=== PATIENT | female | born 2005 | race Caucasian/White ===

== ENCOUNTER 2025-01-15 14:42 | Outpatient (CLI) | payer BC, SELFPAY ==
[2025-01-15 23:57] LABS: Chlamydia DNA Amplified* NOT DETECTED (No Detected); GC DNA Amplified* NOT DETECTED (No Detected)
[2025-01-19 17:26] LABS: Pap Test Digital Imaging Done
== END 2025-01-15 14:43 | disposition home or self-care (01) ==
PROVIDERS: PCP Family Medicine; Visit Provider Family Medicine
DX: Z11.3 Encounter for screening for infections with a predominantly sexual mode of transmission (principal); Z12.4 Encounter for screening for malignant neoplasm of cervix; Z00.00 Encounter for general adult medical examination without abnormal findings
CPT/HCPCS: 80053; 86592; 86703; 86803; 87491; 87591; 87624; 87625; 88141; 88142; 88175